=== PATIENT | male | born 1985 | race Caucasian/White ===

== ENCOUNTER 2022-03-30 19:48 | Emergency (ER) | payer MEDICAID ==
[~2022-03-30] VITALS: Ht 165.1 cm; Wt 92.5 kg
[2022-03-30 20:39] VITALS: BP 133/94
--- NOTE | 2022-03-30 21:07 | NUR ---
Patient taken to x-ray via WC.
--- NOTE | 2022-03-30 22:50 | NUR ---
36YR OLD MALE BIB SELF C/O R FOOT PAIN. CHRONIC. PT USES A CANE FOR AMUBLATION. PT IS A&OX4. PT IS HOMELESS , FROM THE STREETS. IS CONSTANTLY WALKING LONG DISTANCES. NO SWELLING OR DEFORMITY NOTED. NKDA NO MED HX
--- NOTE | 2022-03-30 23:19 | NUR ---
DR MARTINEZ AT BEDSIDE
[2022-03-30] MEDS ORDERED: NAPR-54 PO (23:23)
[2022-03-30] MEDS ORDERED: IBUPROFEN 600 MG TAB PO ONE (23:25)
[2022-03-30] MEDS ORDERED: IBUPROFEN 600 MG TAB ONE (23:26)
[2022-03-30 23:43] VITALS: BP 133/94
--- NOTE | 2022-03-30 23:44 | NUR ---
Chart checked and completed.
--- NOTE | 2022-03-30 23:44 | NUR ---
Patient discharged with v/s stable. Written and verbal after care instructions given and explained. Patient verbalized understanding. Ambulatory with steady gait. All questions addressed prior to discharge. Advised to follow up with PMD.
== END 2022-03-30 23:45 | disposition home or self-care (01) ==
LOC: MED 19:48
DX: S93.601A Unspecified sprain of right foot, initial encounter (principal); F20.9 Schizophrenia, unspecified; I10 Essential (primary) hypertension; Z79.899 Other long term (current) drug therapy; Z88.0 Allergy status to penicillin; X58.XXXA Exposure to other specified factors, initial encounter; Y93.89 Activity, other specified; Y92.89 Other specified places as the place of occurrence of the external cause; Y99.8 Other external cause status
CPT/HCPCS: 29515; 73630; 99283